=== PATIENT | female | born 1965 | race Two or more races ===

== ENCOUNTER 2017-05-25 10:11 | Emergency (ER) | payer OTHER ==
[~2017-05-25] VITALS: Ht 154.9 cm; Wt 64.0 kg
[2017-05-25 10:24] VITALS: BP 165/93
[2017-05-25] MEDS ORDERED: IBUPROFEN600 MG ORAL (10:42)
[2017-05-25 10:50] VITALS: BP 150/88
--- NOTE | 2017-05-25 11:08 | Emergency Room Report ---
History of Present Illness General Chief Complaint: Upper Extremity Injury Source: Patient Present Illness HPI 51-year-old female presenting with left shoulder pain, states that a box fell onto her left shoulder 2 weeks ago, has since had pain to the area. She has been taking Motrin every other day for the pain. Denies any head trauma or LOC. Pain worse with movement. However patient has still been able to use arm Allergies: Coded Allergies: No Known Allergies (Unverified , 05/25/17) Patient History Past Medical History: see triage record Past Surgical History: none Pertinent Family History: none Reviewed Nursing Documentation: PMH: Agreed, PSxH: Agreed Nursing Documentation-PMH Past Medical History: No Stated History Review of Systems All Other Systems: negative except mentioned in HPI Physical Exam Vital Signs Date Time Temp Pulse Resp B/P (MAP) Pulse Ox O2 Delivery O2 Flow Rate FiO2 05/25/17 10:18 97.9 72 16 165/93 98 Room Air Sp02 EP Interpretation: reviewed, normal General Appearance: normal inspection, well appearing, no apparent distress, alert, GCS 15, non-toxic Head: normocephalic, atraumatic Eyes: bilateral eye normal inspection, bilateral eye PERRL, bilateral eye EOMI ENT: normal ENT inspection, normal pharynx, normal voice, moist mucus membranes Neck: normal inspection, full range of motion, supple Respiratory: normal inspection, lungs clear, normal breath sounds, no respiratory distress, no retraction, no wheezing, speaking full sentences, chest symmetrical Cardiovascular #1: normal inspection, regular rate, rhythm, no edema, normal capillary refill Cardiovascular #2: 2+ radial (R), 2+ radial (L) Gastrointestinal: normal inspection, non tender, soft, non-distended, no guarding Musculoskeletal: other - Left shoulder mildly tender to palpation, no gross bony deformities, full range of motion, no erythema no effusion Neurologic: normal inspection, alert, oriented x3, responsive, motor strength/ tone normal, sensory intact, normal gait, speech normal Psychiatric: normal inspection, judgement/insight normal, memory normal Skin: normal inspection, normal color, no rash, warm/dry, well hydrated, normal turgor Medical Decision Making Diagnostic Impression: Primary Impression: Chronic left shoulder pain ER Course 51-year-old female with left shoulder pain DDX: Likely contusion, at this time I am not concerned fracture or dislocation, no findings on exam there is full range of motion Plan: Reassurance ER course: Patient has remained stable during ED stay, continues to use left arm without difficulty Disposition: Patient is to be discharged home with a prescription of motrin. Patient educated to rest, ice, and elevate extremity and to avoid vigorous activity. Strict precautions discussed with patient on when to return to the emergency room including increased redness or swelling joints, increased pain/swelling of extremity, fever or chills, which could indicate severe illness. Patient is to follow up with their primary care doctor within 5 days. Patient also instructed to follow up with an orthopedic doctor if continuing to have mild/moderate pain as he may need further outpatient imaging. Patient agrees with plan. Please note that this Emergency Department Report was dictated using [employer] guide technology software, occasionally this can lead to erroneous entry secondary to interpretation by the dictation equipment. Last Vital Signs Date Time Temp Pulse Resp B/P (MAP) Pulse Ox O2 Delivery O2 Flow Rate FiO2 05/25/17 10:50 97.9 68 16 150/88 98 Room Air Disposition: HOME, SELF-CARE Condition: Stable Scripts Ibuprofen* (MOTRIN*) 600 Mg Tablet 600 MG ORAL Q8H Y for For Pain, #30 TAB 0 Refills Prov: Anne Bourgeois M.D. 05/25/17 Referrals: NOT CHOSEN [facility]/,REFERRING (PCP) Departure Forms: Return to Work Return to Work in (Days): 2 Return to Work Date: May 28, 2017 Patient Instructions: Shoulder Pain, [id number] Anne Bourgeois M.D. May 25, 2017 11:08
== END 2017-05-25 11:10 | disposition home or self-care (01) ==
LOC: EMR 10:52
DX: M25.512 Pain in left shoulder (principal); G89.29 Other chronic pain
CPT/HCPCS: 99283

== ENCOUNTER 2018-06-16 09:44 | Emergency (ER) | payer OTHER ==
[~2018-06-16] VITALS: Ht 154.9 cm; Wt 63.5 kg
[~2018-06-16 09:44] MED LIST: IBUPROFEN600 MG ORAL
[2018-06-16 09:47] VITALS: BP 163/93
[2018-06-16] MEDS ORDERED: Tetanus/Diptheria/Pertussis Vaccine 0.5ml Syr IM ONE (10:30)
--- NOTE | 2018-06-16 10:41 | Emergency Room Report ---
History of Present Illness General Chief Complaint: Lower Extremity Injury Source: Family Member Present Illness HPI 52yo F with left rahman pain s/p metallic cabinet falling on it at work 1 week ago. Patient reports the pain is mild, has a minimal amount of redness around and reports it's been the same ever since the fall. There is no spreading redness, no fevers, no purulent discharge, and she's never been seen for it. She does not know when her last tetanus shot was. Allergies: Coded Allergies: No Known Allergies (Unverified , 05/25/17) Patient History Past Medical History: see triage record Now: No Reviewed Nursing Documentation: PMH: Agreed; PSxH: Agreed Nursing Documentation-PMH Past Medical History: No Stated History Review of Systems Constitutional: Denies: fever Eye: Denies: acuity changes Respiratory: Denies: cough, shortness of breath Cardiovascular: Denies: chest pain Gastrointestinal: Denies: nausea, vomiting Skin: Denies: rash Neurological: Denies: headache Physical Exam Vital Signs Date Time Temp Pulse Resp B/P (MAP) Pulse Ox O2 Delivery O2 Flow Rate FiO2 06/16/18 09:47 99.0 72 18 163/93 96 Room Air General Appearance: well appearing, no apparent distress Head: normocephalic, atraumatic ENT: hearing grossly normal, normal voice Neck: full range of motion, supple Respiratory: no respiratory distress, speaking full sentences Musculoskeletal: no calf tenderness Neurologic: alert, normal gait Psychiatric: mood/affect normal Skin: no rash, abrasions - healed over scab measuring 3cm, horizontal orientation mid L tibia, no surrounding erythema, wartmth, tenderness, deformity , no purulence or bleeding Medical Decision Making ER Course tdap updated, xr normal, no infection, dx abrasion, workers comp paperwork done Other X-Ray Diagnostic Results Other X-Ray Diagnostic Results : X-Ray ordered: L tib fib # of Views/Limited Vs Complete: 2 View Indication: Pain EP Interpretation: Yes Interpretation: no dislocation, no soft tissue swelling, no fractures Impression: No acute disease Electronically Signed by: Jacob Irvin MD Last Vital Signs Date Time Temp Pulse Resp B/P (MAP) Pulse Ox O2 Delivery O2 Flow Rate FiO2 06/16/18 09:47 99.0 72 18 163/93 96 Room Air Disposition: HOME, SELF-CARE Condition: Stable JACOB IRVIN M.D Jun 16, 2018 10:41
--- NOTE | 2018-06-16 11:11 | Diagnostic Imaging Report ---
Indication: Left leg pain Comparison: None Findings: Two views of the left tibia and fibula were obtained. No acute fracture, malalignment, or periosteal reaction are identified. Soft tissues are unremarkable. Impression: No acute injury.
== END 2018-06-16 10:55 | disposition home or self-care (01) ==
LOC: EMR 10:01
DX: S80.812A Abrasion, left lower leg, initial encounter (principal); W20.8XXA Other cause of strike by thrown, projected or falling object, initial encounter; Y92.89 Other specified places as the place of occurrence of the external cause; Y99.0 Civilian activity done for income or pay; Z23 Encounter for immunization
CPT/HCPCS: 90471; 90715; 99283